=== PATIENT | male | born 1945 | race Caucasian/White ===

== ENCOUNTER 2021-07-22 10:17 | Outpatient (CLI) | payer MEDICARE, OTHER ==
[2021-07-22] MEDS ORDERED: Iopamidol 300 61% 100 ML VIAL FS ONE (10:45)
[2021-07-22] MEDS ORDERED: Magnevist 469MG/ML 20 ML VIAL ONE (10:47)
== END 2021-07-22 10:18 | disposition home or self-care (01) ==
LOC: CSHCT 10:17
PROVIDERS: ATTEND Urology
DX: C61 Malignant neoplasm of prostate (principal); Z90.79 Acquired absence of other genital organ(s); K76.9 Liver disease, unspecified; N28.1 Cyst of kidney, acquired
CPT/HCPCS: 72197; 74178; 82565; A9579; Q9967

== ENCOUNTER 2024-07-03 09:06 | Outpatient (CLI) | payer MEDICARE | END 2024-07-03 09:07 | disposition home or self-care (01) | LOC: CSHWCC 09:06 | PROVIDERS: ATTEND Nurse Practitioner Family | DX: N30.40 Irradiation cystitis without hematuria (principal) ==

== ENCOUNTER 2024-09-08 08:10 | Outpatient (CLI) | payer MEDICARE | END 2024-09-08 08:11 | disposition home or self-care (01) | LOC: CSHWCC 08:10 | PROVIDERS: ATTEND Nurse Practitioner Family | DX: N30.40 Irradiation cystitis without hematuria (principal) | CPT/HCPCS: G0277 ==